=== PATIENT | female | born 1970 | race Caucasian/White ===

== ENCOUNTER 2020-07-27 13:12 | Outpatient (CLI) | payer OTHER, BC, SELFPAY ==
--- NOTE | 2020-07-27 13:37 | USCV_ITS ---
Fozia Bartlett Age: 50 Gender: F : 1970 Exam Date: 07/27/2020 13:48 Ordering Phys: Yelena Starr FISCAL OFFICER Technologist: Ellen Bruner [place] [facility] [place]: LOWER EXTREMITY PAIN HISTORY: Lower extremity pain. PROCEDURES: Venous duplex imaging was performed in only the right lower extremity. The following venous structures were evaluated: common femoral vein, profunda vein, proximal portion of the greater saphenous vein, superficial femoral vein, and the popliteal vein. In addition, the posterior tibial and peroneal trunk were evaluated. FINDINGS: Normal 2-D Doppler and augmentation and compressibility throughout the lower extremity venous structures. Additional imaging through the proximal calf veins also reveals no thrombus. Limited evaluation of the greater saphenous vein is patent with no thrombus. Complex cystic mass with low level echos and no vascularity measuring 2.5 X 3.7 X 1.4 cm in the right popliteal fossa. CONCLUSIONS No evidence of right lower extremity DVT. Popliteal cyst measuring 2.5 X 3.7 X 1.4 cm with internal debris Ghassan Benjamin MD (Electronically Signed) Final Date: 27 July 2020 17:32 S
== END 2020-07-27 13:13 | disposition home or self-care (01) ==
LOC: RAD 13:16
PROVIDERS: Visit Provider Nurse Practitioner Family
DX: M79.604 Pain in right leg (principal); M71.21 Synovial cyst of popliteal space [Baker], right knee
CPT/HCPCS: 93971

== ENCOUNTER → 2020-11-29 16:18 | Outpatient (BNVA) | payer OTHER, BC, SELFPAY | PROVIDERS: Visit Provider Nurse Practitioner Family | DX: Z20.828 Contact with and (suspected) exposure to other viral communicable diseases (principal); J06.9 Acute upper respiratory infection, unspecified | CPT/HCPCS: 87635 ==